=== PATIENT | female | born 1995 | race Caucasian/White ===

== ENCOUNTER 2018-02-12 20:15 | Emergency (ER) | payer SELFPAY ==
[2018-02-12 21:58] LABS: ABS Basophils 0 10^3/ul (0-0.2); ABS Eosinophils 0 10^3/ul (0-0.6); ABS Lymphocytes 1.2 10^3/ul (1.0-4.8); ABS Monocytes 0.5 10^3/ul (0-0.8); ABS Neutrophils 5.8 10^3/ul (1.5-7.7); ABS Nucleated RBC 0 10^3/ul; Eosinophil % 0.6 % (0-6); Hematocrit 39 % (35-47); Hemoglobin 12.9 g/dl (12.0-16.0); Lymphocyte % 15.8 % (25-47); Mean Corpuscular HGB Conc 34 g/dl (31-36); Mean Corpuscular Hemoglobin 30 pg (27-31); Mean Corpuscular Volume 90 fL (80-97); Nucleated Red Blood Cells % 0.1; Platelet Count 131 10^3/ul (150-450); Red Blood Count 4.26 10^6/ul (4.00-5.40); Red Cell Distribution Width 15 % (10.5-15); White Blood Count 7.5 10^3/ul (3.5-10.8)
--- NOTE | 2018-02-12 22:34 | ED ---
Skin Complaint - HPI Summary HPI Summary: Patient complains of redness and pain at umbilicus and fever 3 days. Seen at [facility] yesterday and started on Bactrim yesterday morning. Patient states symptoms worsened and went to urgent care today was sent to the ED for further evaluation. Denies purulent drainage, trauma, prior history of abscess , cough, sore throat, CP, SOB, N/V/V abdominal pain, change in urine, change in BM. medical history is none. - History of Current Complaint Chief Complaint: EDFever Time Seen by Provider: 02/12/18 21:32 Stated Complaint: POSS INFECTION/FEVER Hx Obtained From: Patient Onset/Duration: Started Days Ago Timing: Constant Onset Severity: Moderate Current Severity: Moderate Pain Intensity: 7 Pain Scale Used: 0-10 Numeric Skin Location: Discrete Aggravating Symptom(s): Nothing Alleviating Symptom(s): Nothing Associated Signs & Symptoms: Negative - Allergy/Home Medications Allergies/Adverse Reactions: Allergies Allergy/AdvReac Type Severity Reaction Status Date / Time No Known Allergies Allergy Verified 02/12/18 20:20 PMH/Surg Hx/FS Hx/Imm Hx Endocrine/Hematology History: Denies: Hx Anticoagulant Therapy Cardiovascular History: Denies: Hx Cardiac Arrest History: Denies: Hx Dialysis Neurological History: Denies: Hx CVA - Immunization History Date of Tetanus Vaccine: 02/11/18 Date of Influenza Vaccine: fall 2016 Immunizations Up to Date: Yes Infectious Disease History: No Infectious Disease History: Denies: Traveled Outside the [place] in Last 30 Days - Social History Alcohol Use: Weekly Alcohol Amount: 10 per week? Substance Use Type: Reports: None Smoking Status (MU): Never Smoked Tobacco Review of Systems Positive: Fever Eyes: Negative ENT: Negative Cardiovascular: Negative Respiratory: Negative Gastrointestinal: Negative Genitourinary: Negative Musculoskeletal: Negative Skin: Other Neurological: Negative Psychological: Normal All Other Systems Reviewed And Are Negative: Yes Physical Exam - Summary Physical Exam Summary: Area of erythema around the umbilicus with erythema and area of induration inside umbilicus. No purulent drainage, no apical abscess. Patient is tender to palpation at superior portion of umbilicus, less tenderness on inferior portion of the umbilicus. Triage Information Reviewed: Yes Vital Signs On Initial Exam: Initial Vitals Temp Pulse Resp BP Pulse Ox 98.9 F 96 16 124/87 98 02/12/18 20:18 02/12/18 20:18 02/12/18 20:18 02/12/18 20:18 02/12/18 20:18 Vital Signs Reviewed: Yes Appearance: Positive: Well-Appearing Skin: Positive: Warm Head/Face: Positive: Normal Head/Face Inspection Eyes: Positive: Normal Neck: Positive: Supple Respiratory/Lung Sounds: Positive: Clear to Auscultation Cardiovascular: Positive: Normal Abdomen Description: Positive: Nontender Musculoskeletal: Positive: Normal Neurological: Positive: Normal Psychiatric: Positive: Normal AVPU Assessment: Alert - [place] Coma Scale Best Eye Response: 4 - Spontaneous Best Motor Response: 6 - Obeys Commands Best Verbal Response: 5 - Oriented Coma Scale Total: 15 Diagnostics - Vital Signs Vital Signs Temp Pulse Resp BP Pulse Ox 02/12/18 20:18 98.9 F 96 16 124/87 98 - Laboratory Lab Results: Lab Results 02/12/18 02/12/18 02/12/18 Range/Units 21:48 21:48 21:48 WBC 7.5 (3.5-10.8) 10^3/ul RBC 4.26 (4.00-5.40) 10^6/ul Hgb 12.9 (12.0-16.0) g/dl Hct 39 (35-47) % MCV 90 (80-97) fL MCH 30 (27-31) pg MCHC 34 (31-36) g/dl RDW 15 (10.5-15) % Plt Count 131 L (150-450) 10^3/ul MPV 10.0 (7.4-10.4) um3 Neut % (Auto) 77.0 (38-83) % Lymph % (Auto) 15.8 L (25-47) % Todd % (Auto) 6.1 (0-7) % Eos % (Auto) 0.6 (0-6) % Baso % (Auto) 0.5 (0-2) % Absolute Neuts (auto) 5.8 (1.5-7.7) 10^3/ul Absolute Lymphs (auto) 1.2 (1.0-4.8) 10^3/ul Absolute Monos (auto) 0.5 (0-0.8) 10^3/ul Absolute Eos (auto) 0 (0-0.6) 10^3/ul Absolute Basos (auto) 0 (0-0.2) 10^3/ul Absolute Nucleated RBC 0 10^3/ul Nucleated RBC % 0.1 Sodium 138 (135-145) mmol/L Potassium 4.0 (3.5-5.0) mmol/L Chloride 104 (101-111) mmol/L Carbon Dioxide 27 (22-32) mmol/L Anion Gap 7 (2-11) mmol/L BUN 9 (6-24) mg/dL Creatinine 0.76 (0.51-0.95) mg/dL Est GFR ( Amer) 117.4 (>60) Est GFR (Non-Af Amer) 97.0 (>60) BUN/Creatinine Ratio 11.8 (8-20) Glucose 80 (70-100) mg/dL Lactic Acid 0.6 (0.5-2.0) mmol/L Calcium 9.5 (8.6-10.3) mg/dL Total Bilirubin 0.60 (0.2-1.0) mg/dL AST 17 (13-39) U/L ALT 10 (7-52) U/L Alkaline Phosphatase 81 (34-104) U/L C-Reactive Protein 89.19 H (<8.01) mg/L Total Protein 7.1 (6.4-8.9) g/dL Albumin 4.6 (3.2-5.2) g/dL Globulin 2.5 (2-4) g/dL Albumin/Globulin Ratio 1.8 (1-3) Result Diagrams: 02/12/18 21:48 02/12/18 21:48 Lab Statement: Any lab studies that have been ordered have been reviewed, and results considered in the medical decision making process. - Ultrasound No standard instances Ultrasound Interpretation: Positive (See Comments) - 2.8 x 2.1 Complex structure at the level of the umbilicus. Possibility of an abscess is a consideration Course/Dx - Course Course Of Treatment: Patient complains of redness and pain at umbilicus and fever 3 days. Seen at [facility] yesterday and started on Bactrim yesterday morning. Patient states symptoms worsened and went to urgent care today was sent to the ED for further evaluation. Denies purulent drainage, trauma, prior history of abscess, cough, sore throat, CP, SOB, N/V/V abdominal pain, change in urine, change in BM. medical history is none. Physical exam: Area of localized erythema around the umbilicus, with erythema and tenderness inside umbilicus. Tenderness with palpation greatest at superior edge of umbilicus, less so with inferior imaging umbilicus. No purulent drainage or apical abscess noted. Vital signs and labs normal. No indication of systemic infection. Bactrim on board for only one day. Ultrasound of umbilical area inconclusive for abscess. Area of greatest tenderness was probed with an 18- gauge needle with no extraction of purulent matter. Patient has appointment for follow-up at surgical center in 2 days. Will be changed from Bactrim to clindamycin 300 mg by mouth 4 times a day for7 days. - Diagnoses Provider Diagnoses: Cellulitis Discharge - Sign-Out/Discharge Documenting (check all that apply): Patient Departure - Discharge Plan Condition: Stable Disposition: HOME Prescriptions: Clindamycin HCl 300 mg PO QID 10 Days #30 capsule Patient Education Materials: Cellulitis (ED) Referrals: No Primary Care Phys,NOPCP [Primary Care Provider] - Additional Instructions: Continue to take Bactrim. If symptoms do not improve by Saturday morning follow- up for further medical care. Return to the ED for any new or worsening symptoms - Billing Disposition and Condition Condition: STABLE Disposition: Home
--- NOTE | 2018-02-13 00:13 | RAD ---
EXAM: US Abdomen Limited CLINICAL HISTORY: 22 years old, female; Pain and signs and symptoms; Abdominal tenderness and fever; Abdominal pain; Periumbilical; Patient HX: Umbilical infection x 3 days. Pt is on bactrim x 2 pedro pablo; Additional info: R/O umbilical abscess TECHNIQUE: Real-time ultrasound of the abdomen (limited) with image documentation. COMPARISON: No relevant prior studies available. FINDINGS: Soft tissues: There is a heterogeneous structure posterior to the umbilicus. Other findings: The measures approximately 2.8 x 2.1 sinus in size. There is shadowing from a portion of this structure. IMPRESSION: Complex structure at the level of the umbilicus, as described above. The possibility of an abscess would be a consideration.
[2018-02-13] MEDS ORDERED: Clindamycin CAP* 150 MG PO ONE (00:54)
[2018-02-13 01:52] VITALS: BP 123/82
== END 2018-02-13 01:51 | disposition home or self-care (01) ==
LOC: ED 20:15
DX: L03.311 Cellulitis of abdominal wall (principal); R50.9 Fever, unspecified
CPT/HCPCS: 36415; 76705; 80053; 83605; 85025; 86140; 99282

== ENCOUNTER 2018-02-14 10:08 | Day surgery (SDC) | payer BC ==
[~2018-02-14 10:08] MED LIST: Buffered Lidocaine 0.9% SYRIN* 5 ML/SYR SYRINGE INTRADERM ONE; Clindamycin CAP* 150 MG ONE
[2018-02-14] MEDS ORDERED: Propofol* 10 MG/ML 20 ML BTL IV PUSH ONE (11:14)
[2018-02-14] MEDS ORDERED: Glycopyrrolate IV* 0.2 MG/ML 1 ML VIAL ONE ×2 (11:16→11:30)
[2018-02-14] MEDS ORDERED: Neostigmine Methylsulfate* 1 MG/ML 10 ML VIAL (1 mg/ml) ONE (11:16)
[2018-02-14] MEDS ORDERED: Propofol* 500 MG/50 ML BTL ONE (11:32)
[2018-02-14] MEDS ORDERED: Lidocaine 2% PF * 5 ML VIAL ONE (11:32)
[2018-02-14] MEDS ORDERED: Levalbuterol HFA INHALER* 1 PUFF MDI ONE (12:02)
[2018-02-14] MEDS ORDERED: KETAMINE HCL* 50 MG/ML 10 ML VIAL ONE (12:04)
[2018-02-14] MEDS ORDERED: Midazolam* 1 MG/ML 2 ML VIAL (2 MG) ONE ×2 (12:06→12:57)
[2018-02-14] MEDS ORDERED: Bupivacaine 0.25% W/EPI* 10 ML SDV ONE (12:09)
[2018-02-14] MEDS ORDERED: Lidocaine 1% INJ* 10 MG/ML 30 ML SDV ONE (12:09)
[2018-02-14] MEDS ORDERED: Naloxone* 0.4 MG/ML 1 ML VIAL IV PRN (12:59)
[2018-02-14] MEDS ORDERED: Acetaminophen TAB* 325 MG PO PRN (12:59)
[2018-02-14] MEDS ORDERED: fentaNYL* 50 MCG/ML 2 ML VIAL (100 MCG VIAL) IV PRN (12:59)
[2018-02-14] MEDS ORDERED: Ondansetron INJ* 2 MG/ML VIAL IV PRN (12:59)
[2018-02-14 14:14] VITALS: BP 105/73
--- NOTE | 2018-02-14 21:58 | OP ---
CC: [facility] * DATE OF PROCEDURE: 02/14/18 - SDS DATE OF : 97 SURGEON: Dr. Waters. B[employer]IP[employer] MACHINE: None. ANESTHESIA: Local MAC anesthesia. PRE-OP DIAGNOSIS: Umbilical abscess. POST-OP DIAGNOSIS: Umbilical abscess. PROCEDURE: Incision and drainage of an umbilical abscess. SPECIMEN: Fluid for cultures. Wound left open and packed with 0.25 inch iodoform packing. DESCRIPTION OF PROCEDURE: The patient was identified in the preoperative area. Consent was signed. She was marked, brought to the operating room and placed on the operating table in the supine position. General sedation was given. The patient's abdomen was prepped and draped in the sterile fashion and a time- out was performed. We addressed the umbilicus. The superior aspect just left to the midline showed the most significant finding of swelling consistent with cystic structure that is consistent with abscess. The cellulitis and the surrounding tissue was marked. This measured approximately 8 cm. Injection of lidocaine around the cellulitic area and also at the site of the planned incision right at the umbilical fold was carried out. This was 0.25% Marcaine with epinephrine. Once this was instilled, an 11-blade scalpel was used to make an incision longitudinal within the umbilical fold. Cavity was entered and portion of the capsule was debrided. This fluid was clear. Cultures were taken and an additional area just left to the midline was entered as well with scalpel. I did debride some of the skin to keep the wound edges from healing too quickly and 0.25 inch iodoform packing was inserted followed by gauze. The patient tolerated the procedure well. [id number]/[facility] #: [id number] [facility]
== END 2018-02-14 14:30 | disposition home or self-care (01) ==
LOC: OR 10:08
PROVIDERS: ATTEND Surgery
DX: L08.82 Omphalitis not of newborn (principal); J45.909 Unspecified asthma, uncomplicated; R10.33 Periumbilical pain
CPT/HCPCS: 36415; 84702; 87070; 87073; 87077; 87205; A9270-GY; J2250; J2704; J2710